=== PATIENT | male | born 1990 | race Two or more races ===

== ENCOUNTER 2022-10-31 09:54 | Emergency (ER) | payer MEDICAID, SELFPAY ==
--- NOTE | ~2022-10-31 | XR_ITS ---
EXAMINATION: XR CHEST CLINICAL INFORMATION: Mid back pain with shortness of breath COMPARISON: None available. TECHNIQUE: 2 views of the chest were obtained. FINDINGS: No significant abnormality is noted involving the heart, lungs, mediastinum, bony thorax or soft tissues. XR/XR chest 2V IMPRESSION: Unremarkable examination.
[2022-10-31 10:04] VITALS: BP 120/73; PULSE 81; RESP 19; TEMP 36.6; O2SAT 98; BMI 26.4
--- NOTE | 2022-10-31 11:44 | PC.NURSE ---
called to [facility]. x2 no answer.
== END 2022-10-31 15:05 | disposition left against medical advice (07) ==
PROVIDERS: Emergency Provider Emergency Medicine
DX: M54.50 Low back pain, unspecified (principal); R06.02 Shortness of breath
CPT/HCPCS: 71046; 99281; 99283

== ENCOUNTER 2024-05-24 17:38 | Emergency (ER) | payer MEDICAID, SELFPAY ==
[2024-05-24 17:43] VITALS: BP 106/60; PULSE 87; O2SAT 97
--- NOTE | 2024-05-24 17:44 | ED_ITS ---
HPI - Dizziness General Chief Complaint: Dizziness Stated Complaint: dizzyness Related Data Allergies Allergy/AdvReac Type Severity Reaction Status Date / Time No Known Allergies Allergy Verified 05/24/24 17:49 [facility] Social History Social History Advance Directives: No Advance Directives Information Provided: No Do you have a plan to hurt others: No Plan Physical Exam 2 Vital Signs: Vital Signs: Last Vital Signs Temp 98.4 F 05/24/24 17:47 Pulse 75 05/24/24 17:47 Resp 18 05/24/24 17:47 BP 111/74 05/24/24 17:47 Pulse Ox 98 05/24/24 17:47 O2 Del Method Room Air 05/24/24 17:47 BMI result Body Mass Index 30.3 Course Course Course Narrative: This is a Rapid Medical Examination (RME) performed by Aditya Lora PA-C in triage. Full HPI, ROS, assessment and treatment plan per primary provider in the Main ED. 05/24/24 1745 FINN Salguero Hx: 33 yo male BIBA for eval of presyncopal episode. reports feeling like he was going to pass out about 30 minutes ago. ems was called, his symptoms improved and he declined transport to ED. felt faint again, called EMS and was transported here. he is concerned his sugar is dropping. POC glucose 86 per EMS. assoc sweats, chills. reports symptoms began on standing. lasted approx 15 mins. reporting drinking a sprite and eating a snickers prior to POC of 86. PE/vitals: pale appearing, ambulating w/ steady gait Plan: labs, ekg, poc glucose Reevaluation(s) Reevaluation #1: Patient left the emergency department before myself or any of the other clinicians could review or explain physical exam findings, test results, need or lack there of for additional testing, treatment options, or a treatment plan. Medical Decision Making Lab Data 05/24/24 18:04 05/24/24 18:04 Labs: Lab Results 05/24/24 Range/Units 18:04 WBC 10.9 H (4.8-10.8) X10*3/uL RBC 5.28 (4.60-5.80) X10*6/uL Hgb 15.4 (14.0-18.0) g/dl Hct 47.1 (42.0-52.0) % MCV 89.2 (80.0-98.0) fL MCH 29.2 (27.0-33.0) pg MCHC 32.7 (31.0-36.0) g/dl RDW 13.2 (11.0-16.0) % Plt Count 265 (160-400) X10*3/uL MPV 10.1 (9.4-12.4) fL Immature Gran % (Auto) 0.3 (0.0-0.4) % Neut % (Auto) 83.7 H (45-73) % Lymph % (Auto) 12.0 L (20-40) % [place] % (Auto) 3.4 (2-11) % Eos % (Auto) 0.3 (0-4) % Baso % (Auto) 0.3 (0-2) % Lymph # (Auto) 1.3 (1.2-4.9) X10*3/uL [place] # (Auto) 0.4 (0.1-1.2) X10*3/uL Eos # (Auto) 0.0 (0.0-0.4) X10*3/uL Baso # (Auto) 0.0 (0.0-0.2) X10*3/uL Abs Immat Gran (auto) 0.03 (0.00-0.03) X10*3/uL Absolute Neuts (auto) 9.1 H (2.0-8.3) x10*3/uL Absolute Nucleated RBC 0.000 (0.0-0.012) X10*3/uL Nucleated RBC % (auto) 0.0 (0.0-0.2) /100WBC Sodium 139 (135-145) mmol/L Potassium 3.9 (3.3-5.1) mmol/L Chloride 106 (96-108) mmol/L Carbon Dioxide 26 (22-29) mmol/L Anion Gap 11 L (12-20) BUN 15 (9-16) mg/dL Creatinine 1.05 (0.5-1.4) mg/dL Estim Creat Clear Calc 126.9 Estimated GFR > 60 Random Glucose 122 H (60-115) mg/dL Calcium 9.8 (8.4-10.2) mg/dL Magnesium 2.2 (1.6-2.6) mg/dL Total Bilirubin 0.4 (0.0-1.0) mg/dL AST 29 (5-37) U/L ALT 67 H (0-40) U/L Alkaline Phosphatase 59 (39-117) U/L Troponin I High Sens < 2.7 (<3.5-35.0) ng/L Total Protein 7.8 (6.5-8.0) g/dL Albumin 5.0 (3.5-5.0) g/dL Discharge Plan Discharge Clinical Impression: Dizziness Patient Disposition: Left W/O Completing Treatment Discharge Date/Time: 05/25/24 02:46
[2024-05-24 17:47] VITALS: BP 111/74; PULSE 75; RESP 18; TEMP 36.9; O2SAT 98; BMI 30.3
--- NOTE | 2024-05-24 17:49 | ECG_ITS ---
Test Reason : dizziness Blood Pressure : */* mmHG Vent. Rate : 65 BPM Atrial Rate : 65 BPM P-R Int : 162 ms QRS Dur : 110 ms QT Int : 390 ms P-R-T Axes : 61 21 11 degrees QTcB Int : 405 ms Normal sinus rhythm Normal ECG No previous ECGs available Referred By: Donna Lora Electronically Signed By: MEKA WARD MD
[2024-05-24 18:08] LABS: MANUAL DIFF FLAG NO
[2024-05-24 18:10] LABS: Basophils Percent Auto 0.3 % (0-2); Eosinophils Percent Auto 0.3 % (0-4); Hematocrit 47.1 % (42.0-52.0); Hemoglobin 15.4 g/dl (14.0-18.0); Imm Gran Abs Auto 0.03 X10*3/uL (0.00-0.03); Imm Gran Pct Auto 0.3 % (0.0-0.4); Lymphocytes Absolute Auto 1.3 X10*3/uL (1.2-4.9); Mean Corpuscular HGB Conc 32.7 g/dl (31.0-36.0); Mean Corpuscular Hemoglobin 29.2 pg (27.0-33.0); Mean Corpuscular Volume 89.2 fL (80.0-98.0); Mean Platelet Volume 10.1 fL (9.4-12.4); Monocytes Absolute Auto 0.4 X10*3/uL (0.1-1.2); Monocytes Percent Auto 3.4 % (2-11); Neutrophils Absolute Auto 9.1 x10*3/uL (2.0-8.3); Neutrophils Percent Auto 83.7 % (45-73); Platelet Count 265 X10*3/uL (160-400); Red Blood Count 5.28 X10*6/uL (4.60-5.80); Red Cell Distribution Width 13.2 % (11.0-16.0); White Blood Count 10.9 X10*3/uL (4.8-10.8)
[2024-05-24 18:26] LABS: Alkaline Phosphatase 59 U/L (39-117); Anion Gap 11 (12-20); Aspartate Amino Transferase 29 U/L (5-37); Bilirubin Total 0.4 mg/dL (0.0-1.0); Blood Urea Nitrogen 15 mg/dL (9-16); Calcium 9.8 mg/dL (8.4-10.2); Carbon Dioxide 26 mmol/L (22-29); Chloride 106 mmol/L (96-108); Creatinine Clr Calc Pharmacy 126.9; Estimated Glomerular Filt Rate > 60; Glucose Random 122 mg/dL (60-115); Magnesium 2.2 mg/dL (1.6-2.6); Potassium 3.9 mmol/L (3.3-5.1); Sodium 139 mmol/L (135-145); Total Protein 7.8 g/dL (6.5-8.0)
[2024-05-24 18:30] LABS: Troponin-I High Sensitivity < 2.7 ng/L (<3.5-35.0)
[2024-05-24 18:39] LABS: Alanine Aminotransferase 67 U/L (0-40)
--- NOTE | 2024-05-25 01:38 | MHC.EDTECH ---
pt called for repeat labs, no answer.
== END 2024-05-25 02:46 | disposition left against medical advice (07) ==
LOC: HO.ED 05-25 02:24
PROVIDERS: Physician Assistant Medical; Emergency Provider Emergency Medicine
DX: R42 Dizziness and giddiness (principal)
CPT/HCPCS: 36415; 80053; 83735; 84484; 85025; 93005; 99283

== ENCOUNTER → 2024-05-24 17:49 | Outpatient (BNV) | payer MEDICAID, SELFPAY | PROVIDERS: Emergency Provider Emergency Medicine; Visit Provider Internal Medicine Cardiovascular Disease | DX: R42 Dizziness and giddiness (principal) | CPT/HCPCS: 93010 ==